=== PATIENT | female | born 2000 | race African-American/Black ===

== ENCOUNTER 2021-03-11 00:43 | Inpatient (IN) ==
[2021-03-11] MEDS ORDERED: MEPERIDINE 50 MG/1 ML VIAL IV PRN (00:53)
[2021-03-11] MEDS ORDERED: ONDANSETRON 4 MG/2 ML VIAL IV PRN ×2 (00:53→18:09)
[2021-03-11] MEDS ORDERED: LACTATED RINGERS 500 ML IV PRN (00:53)
[2021-03-11] MEDS ORDERED: BUTORPHANOL 2 MG/ML VIAL IV PRN (00:53)
[2021-03-11 01:22] LABS: Basophils % 0.3 % (0.0-0.8); Eosinophils % 0.3 % (0.00-10.9); Hematocrit 34.6 VOL% (35.7-47.0); Hemoglobin 10.6 GM/DL (12.0-16.0); Immature Granulocytes % 0.7 %; Immature Granulocytes Absolute 0.09 #; Lymphocytes # 2.8 10*3/uL (1.4-4.0); Lymphocytes % 20.4 % (21.3-54.2); Mean Corpuscular HGB Conc 30.6 GM/DL (32-36); Mean Corpuscular Volume 77.8 FL (87-102); Mean Platelet Volume 10.5 FL (9.6-12.0); Monocytes % 9.8 % (1.7-12.7); Neutrophils % 68.5 % (38.7-73.9); Platelet Count 260 T/CUMM (130-400); Red Blood Count 4.45 MC/CUMM (3.8-5.5); White Blood Count 13.5 T/CUMM (4-12)
[2021-03-11] MEDS: LACTATED RINGERS 1,000 ML IV SCH ×4 (04:48→17:05)
[2021-03-11] MEDS ORDERED: OXYTOCIN/LR 20 UNIT/1,000 ML BAG IV SCH (06:00)
[2021-03-11] MEDS ORDERED: diphenhydrAMINE 50 MG/1 ML VIAL IV PRN (09:00)
[2021-03-11] MEDS ORDERED: CITRIC ACID/SODIUM CITRATE 30 ML UDCUP PO ONE (09:00)
[2021-03-11] MEDS ORDERED: FAMOTIDINE 20 MG/2 ML VIAL IV ONE (09:00)
[2021-03-11] MEDS ORDERED: fentaNYL 2 MCG/ROPIV 0.2% EPID 100 ML EPIDURAL SCH (09:00)
[2021-03-11] MEDS ORDERED: PROMETHAZINE 25 MG/1 ML VIAL IM PRN (09:00)
[2021-03-11] MEDS ORDERED: ePHEDrine 50 MG/ML VIAL IV PRN (09:00)
[2021-03-11] MEDS ORDERED: NALOXONE 0.4 MG/ML VIAL IV PRN (09:09)
[2021-03-11 15:52] LABS: Bilirubin,Urine Negative (Negative); Blood, Urine Negative (Negative); Glucose,Urine (UA) Negative (Negative); Ketones,Urine 5 mg/dL (Negative); Mucus,Urine Occasional /LPF (Occasional); Nitrite,Urine Negative (Negative); Protein,Urine Negative; RBC,Urine 3 /HPF (0-4); Urine Appearance CLEAR (Clear); Urine Color Yellow (Yellow); Urine Specific Gravity 1.014 (1.001-1.035); Urine Urobilinogen < 2.0 EU/DL (0.2-1.0)
[2021-03-11] MEDS ORDERED: ceFAZolin 2,000 MG/50 ML DUPLEX IV ONE (16:42)
[2021-03-11] MEDS ORDERED: OXYTOCIN 10 UNIT/ML VIAL IM ONE (16:45)
[2021-03-11] MEDS ORDERED: miSOPROStoL 200 MCG TABLET ONE (16:55)
[2021-03-11] MEDS ORDERED: CARBOPROST TROMETHAMINE 250 MCG/ML AMP IM ONE (16:56)
[2021-03-11] MEDS ORDERED: METHYLERGONOVINE 0.2 MG/1 ML AMP ONE (16:56)
[2021-03-11] MEDS ORDERED: TRANEXAMIC ACID 1,000 MG/10 ML VIAL ONE (16:56)
[2021-03-11] MEDS ORDERED: SODIUM CHLORIDE 0.9% 0 ML IV ONE (16:58)
[2021-03-11] MEDS ORDERED: OXYTOCIN/LR 30 UNIT/1,000 ML BAG IV ONE (16:58)
[2021-03-11] MEDS ORDERED: LIDOCAINE MPF 2% /EPI 20 ML VIAL ONE (17:00)
[2021-03-11] MEDS ORDERED: ONDANSETRON 4 MG/2 ML VIAL ONE (17:01)
[2021-03-11 18:01] LABS: Cord Arterial Blood HCO3 25.2 MMOL/L
[2021-03-11 18:03] LABS: Cord Venous Blood HCO3 23.6 MMOL/L; Cord Venous Blood PCO2 41.3 MMHG; Cord Venous Blood PO2 31.9 MMHG
[2021-03-11] MEDS ORDERED: OXYTOCIN/LR 20 UNIT/1,000 ML BAG IV ONE (18:09)
[2021-03-11] MEDS ORDERED: RHO(D) IMMUNE GLOBULIN 300 MCG SYRINGE IM ONE (18:09)
[2021-03-11] MEDS ORDERED: SIMETHICONE CHEW 80 MG TABLET PO PRN (18:09)
[2021-03-11] MEDS ORDERED: ACETAMINOPHEN 325 MG TABLET PO PRN (18:09)
[2021-03-11] MEDS ORDERED: LACTATED RINGERS 1,000 ML IV SCH (18:30)
[2021-03-11] MEDS: DOCUSATE SODIUM 100 MG CAPSULE PO SCH (21:27)
[2021-03-11] MEDS ORDERED: ACETAMINOPHEN 500 MG TABLET PO SCH (22:00)
[2021-03-11] MEDS: KETOROLAC 30 MG/1 ML VIAL IV SCH (22:35)
[2021-03-12] MEDS: KETOROLAC 30 MG/1 ML VIAL IV SCH ×2 (05:42→15:00)
[2021-03-12 06:12] LABS: Basophils % 0.3 % (0.0-0.8); Eosinophils % 0.1 % (0.00-10.9); Hematocrit 26.7 VOL% (35.7-47.0); Hemoglobin 8.1 GM/DL (12.0-16.0); Immature Granulocytes % 0.6 %; Immature Granulocytes Absolute 0.09 #; Lymphocytes # 1.7 10*3/uL (1.4-4.0); Lymphocytes % 12.5 % (21.3-54.2); Mean Corpuscular HGB Conc 30.3 GM/DL (32-36); Mean Platelet Volume 10.2 FL (9.6-12.0); Monocytes % 8.7 % (1.7-12.7); Neutrophils % 77.8 % (38.7-73.9); Platelet Count 198 T/CUMM (130-400); Red Blood Count 3.38 MC/CUMM (3.8-5.5); Red Cell Distribution Width 16.9 % (9.3-17.3)
[2021-03-12] MEDS: MAGNESIUM HYDROXIDE SUSP 30 ML UDCUP PO PRN ×2 (08:25→20:48)
[2021-03-12] MEDS: MULTIVITAMIN (PRENATAL) TABLET PO SCH (08:26)
[2021-03-12] MEDS: FERROUS SULFATE 325 MG TABLET PO SCH ×2 (08:26→20:49)
[2021-03-12] MEDS: METOCLOPRAMIDE 10 MG TABLET PO SCH ×2 (08:26→15:37)
[2021-03-12] MEDS: DOCUSATE SODIUM 100 MG CAPSULE PO SCH ×2 (08:26→20:49)
[2021-03-12] MEDS: IBUPROFEN 800 MG TABLET PO PRN ×2 (13:28→20:49)
[2021-03-13] MEDS: METOCLOPRAMIDE 10 MG TABLET PO SCH ×2 (03:54→13:42)
[2021-03-13] MEDS: IBUPROFEN 800 MG TABLET PO PRN ×2 (03:57→13:10)
[2021-03-13] MEDS ORDERED: MAGNESIUM CITRATE 300 ML BOTTLE PO ONE (09:02)
[2021-03-13] MEDS ORDERED: BISACODYL 10 MG SUPP RECTAL ONE (09:02)
[2021-03-13] MEDS: FERROUS SULFATE 325 MG TABLET PO SCH (09:18)
[2021-03-13] MEDS: DOCUSATE SODIUM 100 MG CAPSULE PO SCH (09:18)
[2021-03-13] MEDS: MULTIVITAMIN (PRENATAL) TABLET PO SCH (09:18)
[2021-03-13 10:20] VITALS: BP 135/65
[2021-03-13] MEDS ORDERED: DIPH/TET/ACEL PERT BOOSTER VACCINE 0.5 ML VIAL IM ONE (12:28)
== END 2021-03-13 13:42 | disposition home or self-care (01) | DRG 788 ==
LOC: N.LD 00:43 → N.OB 22:02
PROVIDERS: ADMIT Obstetrics & Gynecology; ATTEND Obstetrics & Gynecology
PROC: LDCSECT (ICD-10-PCS; 2021-03-11 16:50)